=== PATIENT | male | born 1950 | race Caucasian/White ===

== ENCOUNTER 2019-07-02 08:21 | Outpatient (CLI) | payer MEDICARE, SELFPAY ==
[2013-09-06 16:43] VITALS: BP 122/57
[2019-07-02 09:44] LABS: Anion Gap 8.5 mmol/L (3-11); BUN 14 mg/dL (7-18); CO2 28.5 mmol/L (21.0-32.0); CREATININE 0.85 mg/dL (0.70-1.30); Calcium 9.1 mg/dL (8.5-10.1); Calculated LDL 97 mg/dL; Chloride 104 mmol/L (98-107); Cholesterol 166 mg/dL (<200); Glucose 98 mg/dL (74-106); HDL Cholesterol 50 mg/dL (40-60); Potassium 4.5 mmol/L (3.5-5.1); Sodium 141 mmol/L (136-145); Triglyceride 96 mg/dL (<150)
== END 2019-07-02 08:41 ==
PROVIDERS: PCP Emergency Medicine; Visit Provider Nurse Practitioner
DX: E78.2 Mixed hyperlipidemia (principal); I10 Essential (primary) hypertension
CPT/HCPCS: 36415; 80048; 80061

== ENCOUNTER 2019-07-09 00:30 | Outpatient (CLI) | payer MEDICARE, SELFPAY ==
[2013-09-06 16:43] VITALS: BP 122/57
--- NOTE | 2019-07-09 08:08 | ETT_ITS ---
APPROVED REPORT Exam: Exercise Treadmill Patient Location: Out-Patient Room/Bed: Stress Nurse: Kimberli Mccoy RN BMI: 33.14 Indications: Testing today for clearance for IV sedation with dental surgery. Medical History Medical History: CAD s/p IL, CAD s/p stent Cardiac Medications: Lisinopril, Aspirin, Nitroglycerine, Atorvastatin, Metoprolol Tartrate., Allergies: No known drug allergies Cardiac Risk Factors: FHX of CAD, Hyperlipidemia, HTN. Previous Cardiac Procedures: Stent placement Pretest Chest Pain Characteristics: No chest pain Exercise History: Physically active Lung Sounds: Clear to auscultation Heart Sounds: Regular Stress Test Details Test: Exercise stress testing was performed using a Carlos protocol. Rest Stress HR Max Heart Rate (APMHR): 150 bpm Resting HR Supine: 74 bpm Target HR (85% APMHR): 127 bpm Resting HR Standin bpm Max HR Achieved: 136 bpm % of APMHR: 90 HR response to stress: Normal HR response to stress BP Resting BP Supine: 160/94 mmHg Resting BP Standin/92 mmHg Max BP: 186/92 mmHg BP response to stress: Normal blood pressure response to stress. ECG Resting ECG: Sinus Rhythm with occasional PVC's. ST Change: Normal Stress ECG: Occasional PVC's continue throughout exercise test. ST Change: Horizontal ST depression Lead(s): II, III, AvF Maximum ST Deviation: 1 mm Arrhythmia: None Recovery ECG: Occasional PVC's continue throughout recovery. Recovery ST Change: Normal Clinical Reason for Termination: Leg fatigue. Stress Symptoms: None Exercise duration: 9 min1 sec Highest Stage Achieved: Stage 4: 4.2 mph at 16% grade. Exercise capacity: 10.16 METs Functional Capacity: Above average capacity Stress ECG Conclusion 1. The patient exercised for 9 minutes (10 METS) which is above average capacity. 2. He developed [address] depressions in the inferior leads during stress though he had no symptoms. 3. The Pinon Score (3) estimates an annual cardiovascular mortality of 1% and a five year survival of 94%. Using the Pinon Score there is an intermediate probability of angiographic coronary disease. Protocol Used: Carlos Protocol Stress Test Summary STAGE Time (mins) Speed (mph) Grade (%) HR BP SYMPTOMS METS Supine 74 160/94 Standing 93 168/92 1 3 1.7 10 128 168/94 4.6 2 6 2.5 12 133 182/90 7 3 9 3.4 14 136 186/92 10.2 4 12 4.2 16 12.9 5 15 5.0 18 17.2 1 min recovery 122 180/90 3 min recovery 95 170/94 6 min recovery 88 164/92 9 min recovery 85 164/80 12 min recovery 88 162/80
== END 2019-07-09 00:50 ==
PROVIDERS: PCP Emergency Medicine; Visit Provider Nurse Practitioner
DX: I25.10 Atherosclerotic heart disease of native coronary artery without angina pectoris (principal); I25.2 Old myocardial infarction; Z95.5 Presence of coronary angioplasty implant and graft; I10 Essential (primary) hypertension; E78.5 Hyperlipidemia, unspecified; Z82.49 Family history of ischemic heart disease and other diseases of the circulatory system; Z01.818 Encounter for other preprocedural examination
CPT/HCPCS: 93016; 93018; 93017

== ENCOUNTER 2022-01-19 02:09 | Outpatient (CLI) | payer MEDICARE, SELFPAY ==
[2013-09-06 16:43] VITALS: BP 122/57
[2022-01-19 07:27] LABS: ALT 26 U/L (16-63); AST 22 U/L (15-37); Albumin 4.1 g/dL (3.4-5.0); Alkaline Phosphatase 106 U/L (46-116); Anion Gap 7.2 mmol/L (3-11); BUN 15 mg/dL (7-18); Bilirubin, Total 0.9 mg/dL (0.2-1.0); CO2 28.8 mmol/L (21.0-32.0); CREATININE 0.9 mg/dL (0.70-1.30); Calcium 8.7 mg/dL (8.5-10.1); Calculated LDL 91 mg/dL (<100); Chloride 106 mmol/L (98-107); Cholesterol 172 mg/dL (<200); Glucose 115 mg/dL (74-106); HDL Cholesterol 62 mg/dL (40-60); Sodium 142 mmol/L (136-145); Total Protein 7.1 g/dL (6.4-8.2); Triglyceride 96 mg/dL (<150)
== END 2022-01-19 02:10 | disposition home or self-care (01) ==
LOC: LBO 02:10
PROVIDERS: PCP Nurse Practitioner Family; Visit Provider Family Medicine
DX: E78.5 Hyperlipidemia, unspecified (principal); I10 Essential (primary) hypertension; I25.10 Atherosclerotic heart disease of native coronary artery without angina pectoris
CPT/HCPCS: 36415; 80053; 80061

== ENCOUNTER 2023-04-07 02:58 | Outpatient (CLI) | payer MEDICARE, SELFPAY ==
[2013-09-06 16:43] VITALS: BP 122/57
[2023-04-07 16:49] LABS: CREATININE 0.8 mg/dL (0.70-1.30); Estimated GFR 92.87 (mL/min/1.73m2)
== END 2023-04-07 02:59 | disposition home or self-care (01) ==
LOC: LBO 03:00
PROVIDERS: PCP Nurse Practitioner Family; Visit Provider Nurse Practitioner Family
DX: I10 Essential (primary) hypertension (principal)
CPT/HCPCS: 36415; 82565; 84132

== ENCOUNTER 2024-01-06 21:03 | Emergency (ER) | payer MEDICARE, SELFPAY ==
[2013-09-06 16:43] VITALS: BP 122/57
[2024-01-06] VITALS (36 sets, daily range): BP systolic 115–140; BP diastolic 58–108; PULSE 54–190; RESP 12–19; O2SAT 93–99
--- NOTE | 2024-01-06 21:00 | RT.EKG_ITS ---
APPROVED REPORT Exam: Resting ECG Reason for Exam: Chest Pain Patient Location: E HR:189 bpm ECG Measurements Heart Rate 189 AXIS TN 102 P -34 QRSd 168 QRS 144 QT 304 T -60 QTc 537 Conclusion Extreme tachycardia with wide complex, no further rhythm analysis attempted monomorphic vtach
--- NOTE | 2024-01-06 21:00 | RT.EKG_ITS ---
APPROVED REPORT Exam: Resting ECG Reason for Exam: Chest Pain Patient Location: E HR:189 bpm ECG Measurements Heart Rate 189 AXIS MI 102 P -34 QRSd 168 QRS 144 QT 304 T -60 QTc 537 Conclusion monomorphic wide complex tachycardia
[2024-01-06] MEDS: fentaNYL 100 MCG/2 ML VIAL 75 MCG IVP (21:13)
[2024-01-06] MEDS: Midazolam 2 MG/2 ML VIAL 5 MG IVP (21:15)
--- NOTE | 2024-01-06 21:15 | RT.EKG_ITS ---
APPROVED REPORT Exam: Resting ECG Reason for Exam: chest pain Patient Location: E HR:71 bpm ECG Measurements Heart Rate 71 AXIS PA 209 P 51 QRSd 102 QRS 33 QT 345 T 186 QTc 374 Conclusion Sinus rhythm...normal P axis, V-rate 60- 99 Probable anterolateral infarct, age indeterm...Q >35mS, T neg, V2-V6,I,aVL Abnormal T, consider ischemia, lateral leads...T <-0.20mV, I aVL V5 V6 Physician: minimal t wave depressions in V5-6, no ST elevation or STEMI
--- NOTE | 2024-01-06 21:15 | RT.EKG_ITS ---
APPROVED REPORT Exam: Resting ECG Reason for Exam: CHEST PAIN Patient Location: E HR:73 bpm ECG Measurements Heart Rate 73 AXIS [place] 195 P 62 QRSd 104 QRS 44 QT 377 T 94 QTc 416 Conclusion Sinus rhythm...normal P axis, V-rate 60- 99 Anterior infarct, old...Q >40mS, abnormal ST-T, V2-V5 Borderline ST depression, lateral leads...ST <-0.07mV, I aVL V5 V6 no ST segment or T wave abnormalities to suggest occlusive MS
--- NOTE | 2024-01-06 21:15 | RT.EKG_ITS ---
APPROVED REPORT Exam: Resting ECG Reason for Exam: chest pain Patient Location: E HR:67 bpm ECG Measurements Heart Rate 67 AXIS VA 200 P 44 QRSd 95 QRS 16 QT 367 T 174 QTc 387 Conclusion Sinus rhythm...normal P axis, V-rate 60- 99 Abnormal T, consider ischemia, lateral leads...T <-0.20mV, I aVL V5 V6 [address]KG [address] segment or T wave abnormalitites to suggest occluisve CO
--- NOTE | 2024-01-06 21:23 | ED.GENADUL_ITS ---
Discharge Plan Disposition Patient Disposition: Transfer-Acute Inpatient Care Specific Acute Inpt Facility: [facility] Condition: Critical Discharge Details Clinical Impression: Ventricular tachycardia, Acute non-ST elevation myocardial infarction (NSTEMI), Chest pain Primary Care Provider: Von Lopez ED Provider: Vee Guzman Home Meds and New Rx's Prescriptions: No Action mupirocin 2 % ointment 1 applic topical DAILY Qty: 22 2RF Rx Instructions: to affected area atorvastatin 20 mg tablet 20 mg PO DAILY Qty: 90 3RF lisinopril 20 mg tablet See Rx Instructions .ROUTE .COMPLEX Qty: 90 3RF Dose Instruction: TAKE 1 TABLET BY MOUTH DAILY Rx Instructions: TAKE 1 TABLET BY MOUTH DAILY metoprolol succinate 25 mg tablet extended release 24 hr 25 mg PO DAILY Qty: 90 3RF aspirin 325 MG tablet 325 mg PO DAILY HPI General Mode of arrival: ambulatory . Date/Time Provider Initiated Documentation: 01/06/24 21:05 . Limitations to Documentation: no limitations . Information obtained by: patient and family . HPI Narrative: 73yo M with hx CAD prior ID with stent ~25 years ago, presenting with chest pain. Pain started around 7pm; was very active today, putting up wood. Pain was constant since 7pm, somewhat worsening, and he was diaphoretic. eventually convinced him to come to the ED. Pain is dull, substernal, and non-radiating. No shortness of breath at any point. He was in his usual state of health earlier today with no fevers, chills, rash, nausea, vomiting, abdominal pain, numbness, tingling, weakness, or other concerns. Related Data Home Medications Medication Instructions Recorded Confirmed aspirin 325 mg tablet 325 mg PO DAILY 09/06/13 01/06/24 mupirocin 2 % topical ointment 1 applic topical DAILY #22 grams 12/29/21 01/06/24 atorvastatin 20 mg tablet 20 mg PO DAILY #90 tabs 02/10/23 01/06/24 lisinopril 20 mg tablet See Rx Instructions .Route 02/10/23 01/06/24 .COMPLEX #90 tabs metoprolol succinate 25 mg 25 mg PO DAILY #90 tabs 02/10/23 01/06/24 tablet,extended release 24 hr Previous Rx's Medication Instructions Recorded mupirocin 2 % topical ointment 1 applic topical DAILY #22 grams 12/29/21 atorvastatin 20 mg tablet 20 mg PO DAILY #90 tabs 02/10/23 lisinopril 20 mg tablet See Rx Instructions .Route 02/10/23 .COMPLEX #90 tabs metoprolol succinate 25 mg 25 mg PO DAILY #90 tabs 02/10/23 tablet,extended release 24 hr Allergies Allergy/AdvReac Type Severity Reaction Status Date / Time No Known Allergies Allergy Unverified 01/06/24 21:35 General Stated Complaint: Chest Pain KEITH: 2 Review of Systems Narrative: see HPI Exam Narrative Exam Narrative: General: Alert, mild distress, diaphoretic. Head: Normocephalic, atraumatic Neck: Trachea midline, ?Neck supple. ENT: ?MMM.? Cardiac: Tachycardiac Resp: No respiratory distress. CTAB. Abd: ?Soft, non-distended, nontender : ?No suprapubic tenderness. Extremities: ?No deformities.? No peripheral edema. Neurologic: GCS 15. ? Moves all extremities freely against gravity Course Vital Signs Vital signs: Vital Signs Pulse 190 H 01/06/24 21:07 Respiratory Rate 16 01/06/24 21:07 Blood Pressure 133/108 H 01/06/24 21:07 Pulse Oximetry 93 01/06/24 21:07 Pulse 190 H 01/06/24 21:07 Respiratory Rate 16 01/06/24 21:07 Respiratory Effort Normal 01/06/24 21:15 Blood Pressure 133/108 H 01/06/24 21:07 Pulse Oximetry 93 01/06/24 21:07 Oxygen Delivery Method Room Air 01/06/24 21:07 Oxygen Flow Rate 0 01/06/24 21:07 Pain Level 5 01/06/24 21:07 Medical Decision Making 73yo M with hx CAD prior ID with stent ~25 years ago, presenting with chest pain since 7pm, worsening, now with diaphoresis. No shortness of breath. Takes 325 of ASA daily; took additional 325 after onset of chest pain. Tachycardiac to 190 on the monitor; adequate pressure. EKG wide complex tachycardia. With ongoing chest pain, will treat as unstable despite adequate BP. IV access established, patient pre-medicated with 75mcg of fentanyl and 5mg versed. Synchronized cardioversion with 120J; converted into NSR. EKG with some ST depressions V3-V6; posterior EKG with no STEMI. Sonorous respirations after ( reports snoring ?sleep apnea at baseline); placed on 6L NC to maintain O2 sat >95%. Patient subsequently returned to wide complex tachycardia; again synchronized cardioversion this time at 200J, again converted to NSR. Remained in SR on the monitor, MAP borderline 60-65; given 2L IVFB with good effect. Labs reviewed as below, CBC with no leukocytsois or anemia, CMP with no significant electrolyte abnormalities, VBG with PH 7.32 with normal bicarb and pCO2, lactate 1.7, trop elevated at 417, BNP normal. 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 Advised amio bolus followed by gtt, starting heparin; accepted to [facility] under Dr. Mccoy; transported via [facility] air. Lab Data Lab results reviewed: Yes I reviewed the patient's lab results. Labs: Laboratory Tests Range/Units 01/06/24 21:11 WBC (4.4-10.8) 10^3/uL 9.82 RBC (4.36-5.78) 10^6/uL 5.32 Hgb (13.5-17.5) g/dL 16.1 Hct (40.0-50.0) % 47.8 MCV (80-95) fL 90 MCH (27.0-33.0) pg 30.3 MCHC (32.0-36.0) % 33.7 RDW (11.8-14.1) % 13.2 Plt Count (130-400) 10^3/uL 234 MPV (8.0-11.0) fL 9.5 Immature Gran % % 0.5 Neutrophils % % 69.7 Lymphocytes % % 21.4 Monocytes % % 6.9 Eosinophils % % 1.0 Basophils % % 0.5 Nucleated RBC % (0.0-0.3) % 0.0 Absolute Neutrophils (1.2-6.7) 10^3/uL 6.84 H Absolute Lymphocytes (1.2-3.4) 10^3/uL 2.10 Absolute Monocytes (0.1-0.8) 10^3/uL 0.68 Absolute Eosinophils (0.0-0.7) 10^3/uL 0.10 Absolute Basophils (0.0-0.2) 10^3/uL 0.05 VBG pH (7.31-7.41) 7.32 VBG pCO2 (41-51) mmHg 51 VBG pO2 mmHg 32 VBG HCO3 (23-28) mmol/L 26 VBG Total CO2 (24-29) mmol/L 23 L VBG O2 Saturation % 56 VBG Base Excess (-2-3) mmol/L 0 VBG Lactate (0.6-1.4) mmol/L 1.7 H Sodium (136-145) mmol/L 139 Potassium (3.5-5.1) mmol/L 3.8 Chloride (98-107) mmol/L 103 Carbon Dioxide (21.0-32.0) mmol/L 26.6 Anion Gap (3-11) mmol/L 9.4 BUN (7-18) mg/dL 16 Creatinine (0.70-1.30) mg/dL 1.1 Est GFR (CKD-EPI 2020) (mL/min/1.73m2) 70.01 Glucose (74-106) mg/dL 170 H Calcium (8.5-10.1) mg/dL 9.2 Magnesium (1.8-2.4) mg/dL 1.9 Total Bilirubin (0.2-1.0) mg/dL 0.5 AST (15-37) U/L 26 ALT (16-63) U/L 34 Alkaline Phosphatase (46-116) U/L 116 Troponin I (< or =60) ng/L 417 H* NT-Pro-B Natriuret Pep (<300) pg/mL 88 Total Protein (6.4-8.2) g/dL 7.6 Albumin (3.4-5.0) g/dL 4.2 Quality:SDOH Health Related Social Needs: No Data to Display Critical Care Time Critical Care Time Critical Care Time: Yes Total Critical Care Time: 32 Attestation: Due to a high probability of clinically significant, life threatening deterioration, the patient required my highest level of preparedness to intervene emergently and I personally spent this critical care time directly and personally managing the patient. This critical care time included obtaining a history; examining the patient; pulse oximetry; ordering and review of studies; arranging urgent treatment with development of a management plan; evaluation of patient's response to treatment; frequent reassessment; and, discussions with other providers. This critical care time was performed to assess and manage the high probability of imminent, life-threatening deterioration that could result in multi-organ failure. It was exclusive of separately billable procedures and treating other patients. [facility] All Active Problems (Updated 01/06/24 @ 23:02 by Vee Guzman MD) Chest pain (Acute) Acute non-ST elevation myocardial infarction (NSTEMI) (Acute) Ventricular tachycardia (Chronic) Hyperglycemia (Acute) 01/2022,[id number] Rosacea (Acute) Hyperlipidemia (Acute) Essential hypertension (Acute) Coronary atherosclerosis of [place] coronary vessel (Acute) 1997-[place].I.; V.F.; arrest; LAD occlusion by cath; angioplasty CHF Medical History Polyp of colon T.A. Surgical History Colonoscopy - MAC (~2007) Tubular adenoma Extraction of cataract 04/17 05/17 Rotator Cuff Repair (10/22/14) [facility]; DR. PANTOJA;RIGHT SHOULDER Family History Mother Essential hypertension Personal history of malignant neoplasm colon Heart disease Hyperlipidemia Father No problems noted. Brother No problems noted. Sister No problems noted. Grandfather Heart disease Grandfather Heart disease Grandmother No problems noted. Grandmother Personal history of malignant neoplasm Social History (Updated 02/09/23 @ 15:36 by Delmy Rubio) Smoking/Tobacco Use Status: Former Tobacco Use tobacco type: cigarettes Quit Date: 08/07/71 Tobacco: How many years used: 3 Second Hand Exposure: Yes Smoking risk assessment performed?: Yes Alcohol Intake: current Alcohol Intake frequency: a few times a week Alcohol type: beer Drug use: Never Substance use type: does not use Caregiver/Support person: No Household members: spouse Housing: house Communication Needs: None Do you need help understanding health information?: Never Pets and animals: Yes Pets and animals: cat(s) Sexually active: Yes Do you think of yourself as: straight/heterosexual Current gender identity: male What is your relationship status?: How often do you talk on the phone with friends or family?: three or more times per week How often do you get together with friends or relatives?: three or more times per week How often do you attend gnosticist or confucianist services?: 1-3 times per year Do you belong to any clubs or organized social groups?: no Panel score (0-1 are the most socially isolated patients): 2 Duration: > 90 minutes/day Frequency: daily Tina/Quaker: Rastafari Special tina needs: No Seatbelt use: always Helmet use: Yes Helmet use: always Drive intox or ride w/intox lunch truck driver: No
--- NOTE | 2024-01-06 21:30 | DI.RAD_ITS ---
Exam(s) XR PORTABLE CHEST AP EXAM: XR PORTABLE CHEST AP CLINICAL HISTORY: chest pain TECHNIQUE: 2D digital imaging was performed of the chest. One image was obtained. An AP view was ob tained. COMPARISON: No exams were available for comparison FINDINGS: Poor patient inspiration. MEDIASTINUM: Normal. HEART: Mild cardiomegaly. PULMONARY VASCULATURE: Pulmonary venous congestion. LUNGS: Bilateral pulmonary densities. PLEURAL SPACE: Question of a left pleural effusion. No pneumothorax. BONE:Within normal limits for the patient's age. OTHER FINDINGS:Normal. IMPRESSION: Pulmonary venous congestion and bilateral pulmonary densities suspicious for congestive heart failure . Small left pleural effusion. DATA REPOSITORY: RADIATION DOSE DELIVERED:
[2024-01-06 21:43] LABS: BE (Venous) 0 mmol/L (-2-3); HCO3 (Venous) 26 mmol/L (23-28); O2 Sat (Venous) 56 %; TCO2 (Venous) 23 mmol/L (24-29); pCO2 (Venous) 51 mmHg (41-51); pH (Venous) 7.32 (7.31-7.41); pO2 (Venous) 32 mmHg
[2024-01-06 21:44] LABS: Abs Immature Grans 0.05 10^3/uL (0.0-0.06); Absolute Basophil Count 0.05 10^3/uL (0.0-0.2); Absolute Monocyte Count 0.68 10^3/uL (0.1-0.8); Absolute Neutrophil Count 6.84 10^3/uL (1.2-6.7); Basophils % 0.5 %; HCT 47.8 % (40.0-50.0); HGB 16.1 g/dL (13.5-17.5); Immature Grans % 0.5 %; Lactate 1.7 mmol/L (0.6-1.4); Lymphocytes % 21.4 %; MCH 30.3 pg (27.0-33.0); MCHC 33.7 % (32.0-36.0); MCV 90 fL (80-95); MPV 9.5 fL (8.0-11.0); Monocytes % 6.9 %; Neutrophils % 69.7 %; Platelet Count 234 10^3/uL (130-400); RBC 5.32 10^6/uL (4.36-5.78); RDW 13.2 % (11.8-14.1); RDW-SD 43.5 fL; WBC 9.82 10^3/uL (4.4-10.8)
[2024-01-06 22:07] LABS: ALT 34 U/L (16-63); AST 26 U/L (15-37); Albumin 4.2 g/dL (3.4-5.0); Alkaline Phosphatase 116 U/L (46-116); Anion Gap 9.4 mmol/L (3-11); BUN 16 mg/dL (7-18); Bilirubin, Total 0.5 mg/dL (0.2-1.0); CO2 26.6 mmol/L (21.0-32.0); CREATININE 1.1 mg/dL (0.70-1.30); Calcium 9.2 mg/dL (8.5-10.1); Chloride 103 mmol/L (98-107); Estimated GFR 70.01 (mL/min/1.73m2); Glucose 170 mg/dL (74-106); Magnesium 1.9 mg/dL (1.8-2.4); NT-proBNP 88 pg/mL (<300); Potassium 3.8 mmol/L (3.5-5.1); Sodium 139 mmol/L (136-145); Total Protein 7.6 g/dL (6.4-8.2)
[2024-01-06 22:10] LABS: Troponin I 417 ng/L (< or =60)
--- NOTE | 2024-01-06 22:16 | NUR.NOTE ---
Pt walked into the waiting room with (Beverly) with CC CP 5/ that started during a walk with the dog at 19:00. Pt has hx of HTN, past AR (26 years ago with 1 stent), High Cholesterol. Pt takes DAILY 325 mg ASA. Took this in the AM, then took another 325 mg dose prior to coming to the ED. Has received a total of 650 mg ASA today. Pt weight 220 lb. Height 5'7. Pt brought straight back to Room 1, and when placed on the monitor was found to be in a tachycardia at 200 with CP. MD alerted immediately, vitals, IV access, and pads placed immediately. 21:11 IV access.12 lead EKG, then Posterior 12 lead EKG 21:13 75 mcg Fentanyl 21:15 5 mg Versed IV - pt conscious, alert and oriented. 21:16 Synchronized cardioversion at 120 Joules. Successful - NSR in the 60s 21:18 O2 provided at 8 lpm with Capnography on as well. 21:30 Went into tachycardia at 190 bpm 21:30 Synchronized cardioversion at 200 J. Successful. Back to NSR in 60s. Repeat EKG 21:32 - NS bolus begun, pt hypotesive maps mid 60's, started another line of NS. MAPs came back normal. 22:39 - Pt titrated down to 2 lpm by RT. Maintaing SpO2 at 98%. 22:41 - Pt CP free, feels like normal self. No complaints at this time. Pt still in NSR with occasional PVCs. Alvaro Glynn, CECYN, RN, NRP
[2024-01-06] MEDS: Heparin 5,000 UNITS/ML VIAL 5000 UNITS IV (23:00)
--- NOTE | 2024-01-06 23:09 | DI.VRAD_ITS ---
PROCEDURE INFORMATION: Exam: XR Chest Exam date and time: 01/06/2024 9:50 PM Age: 73 years old Clinical indication: Other: Unspecified; Patient HX: Chest pain TECHNIQUE: Imaging protocol: Radiologic exam of the chest. Views: 1 view. COMPARISON: No relevant prior studies available. FINDINGS: Lungs: Increased interstitial lung markings bilaterally most likely representing interstitial edema or congestive heart failure. No regional or lobar consolidation. Pleural spaces: Blunted costophrenic angle suggesting small pleural effusions. Heart/Mediastinum: Normal heart size. Bones/joints: No acute skeletal change. IMPRESSION: 1. Interstitial edema/CHF features. 2. Minor bilateral pleural effusions. 3. No lobar or segmental infiltrative features. Dictated and Authenticated by: Andres Marques MD. Ordering:MADIHA Baxter MD
[2024-01-06 23:12] LABS: PTT Activated 28.3 sec (23.6-32.8); Prothrombin Time 10.4 sec (9.1-11.1)
[2024-01-06] MEDS: Heparin in 0.45% NaCl 25,000 UNIT/250 ML BAG 1000 UNIT IV (23:18)
[2024-01-06] MEDS: Amiodarone 150 MG/3 ML VIAL IVP (23:19)
[2024-01-06] MEDS: Amiodarone in Dextrose 360 MG/200 ML BAG 33.3 MG IV (23:20)
[2024-01-07 00:01] VITALS: PULSE 65; RESP 23; O2SAT 95
[2024-01-07 00:02] VITALS: BP 141/85; PULSE 64; PULSE 65; RESP 18; O2SAT 95
--- NOTE | 2024-01-07 08:56 | NUR.NOTE ---
Accessed pt chart to reconcile EKG orders with EKG?s in [facility]. Nursing Note:
--- NOTE | 2024-01-07 14:23 | NUR.NOTE ---
Accessed chart to determine the Amiodarone drip for [facility]. I found it in the nursing ED Visit Summary. Nursing Note:
== END 2024-01-07 00:26 | disposition short-term general hospital (02) ==
PROVIDERS: Emergency Provider Student in an Organized Health Care Education/Training Program; PCP Nurse Practitioner Family
DX: I47.20 Ventricular tachycardia, unspecified (principal); I21.4 Non-ST elevation (NSTEMI) myocardial infarction; R79.89 Other specified abnormal findings of blood chemistry; I10 Essential (primary) hypertension; I25.10 Atherosclerotic heart disease of native coronary artery without angina pectoris; I25.2 Old myocardial infarction; Z79.82 Long term (current) use of aspirin; Z95.5 Presence of coronary angioplasty implant and graft; Z87.891 Personal history of nicotine dependence
CPT/HCPCS: 36415; 80053; 82805; 92960; 93005; 99291; 71045; 83605; 83735; 83880; 84484; 85025; 85610; 85730; 93010; J0282; J0283; J1644; J2250; J3010

== ENCOUNTER 2024-02-20 03:24 | Outpatient (CLI) | payer MEDICARE, SELFPAY ==
[2013-09-06 16:43] VITALS: BP 122/57
[2024-02-20 09:31] LABS: Hemoglobin A1C 5.9 % (<5.7)
[2024-02-20 10:17] LABS: CREATININE 0.8 mg/dL (0.70-1.30); Calculated LDL 55 mg/dL (<100); Cholesterol 118 mg/dL (<200); Estimated GFR 92.29 (mL/min/1.73m2); HDL Cholesterol 50 mg/dL (40-60); Potassium 4.4 mmol/L (3.5-5.1); Triglyceride 66 mg/dL (<150)
[2024-02-20 19:38] LABS: PSA, Screening 1.1 ng/mL (<=6.5)
== END 2024-02-20 03:25 | disposition home or self-care (01) ==
LOC: LBO 03:24
PROVIDERS: PCP Nurse Practitioner Family; Referring Provider Nurse Practitioner Family; Visit Provider Nurse Practitioner Family
DX: E78.5 Hyperlipidemia, unspecified (principal); I10 Essential (primary) hypertension; R73.9 Hyperglycemia, unspecified; Z12.5 Encounter for screening for malignant neoplasm of prostate
CPT/HCPCS: 36415; 80061; 84153; 82565; 83036; 84132

== ENCOUNTER 2024-03-06 08:32 | Outpatient (RCR) | payer MEDICARE, SELFPAY ==
[2013-09-06 16:43] VITALS: BP 122/57
== END 2024-03-06 23:59 | disposition home or self-care (01) ==
LOC: CR 08:32
PROVIDERS: PCP Nurse Practitioner Family; Visit Provider Internal Medicine Cardiovascular Disease
DX: I21.4 Non-ST elevation (NSTEMI) myocardial infarction (principal)
CPT/HCPCS: S9472

== ENCOUNTER 2024-04-05 08:19 | Outpatient (RCR) | payer MEDICARE, SELFPAY ==
[2013-09-06 16:43] VITALS: BP 122/57
== END 2024-04-06 23:59 | disposition home or self-care (01) ==
LOC: CR 08:19
PROVIDERS: PCP Nurse Practitioner Family; Visit Provider Internal Medicine Cardiovascular Disease
DX: I21.4 Non-ST elevation (NSTEMI) myocardial infarction (principal); Z51.89 Encounter for other specified aftercare
CPT/HCPCS: S9472

== ENCOUNTER 2024-05-06 08:05 | Outpatient (RCR) | payer MEDICARE, SELFPAY ==
[2013-09-06 16:43] VITALS: BP 122/57
== END 2024-05-06 23:59 | disposition home or self-care (01) ==
LOC: CR 08:05
PROVIDERS: PCP Nurse Practitioner Family; Visit Provider Internal Medicine Cardiovascular Disease
DX: I21.4 Non-ST elevation (NSTEMI) myocardial infarction (principal); Z95.5 Presence of coronary angioplasty implant and graft; Z51.89 Encounter for other specified aftercare
CPT/HCPCS: S9472

== ENCOUNTER 2024-05-24 08:11 | Outpatient (RCR) | payer MEDICARE, SELFPAY ==
[2013-09-06 16:43] VITALS: BP 122/57
== END 2024-06-06 23:59 | disposition home or self-care (01) ==
LOC: CR 08:11
PROVIDERS: PCP Nurse Practitioner Family; Visit Provider Internal Medicine Cardiovascular Disease
DX: I21.4 Non-ST elevation (NSTEMI) myocardial infarction (principal); Z51.89 Encounter for other specified aftercare
CPT/HCPCS: S9472

== ENCOUNTER 2024-06-03 08:31 | Outpatient (CLI) | payer MEDICARE, SELFPAY ==
[2013-09-06 16:43] VITALS: BP 122/57
--- NOTE | 2024-06-03 08:30 | RT.EKG_ITS ---
APPROVED REPORT Exam: Resting ECG Reason for Exam: ASCVD Patient Location: O HR:47 bpm ECG Measurements Heart Rate 47 AXIS [place] 208 P 36 QRSd 108 QRS 2 QT 483 T 30 QTc 427 Conclusion Sinus bradycardia...rate< 50 Anterior infarct, old...Q >40mS, abnormal ST-T, V2-V5
== END 2024-06-03 08:32 | disposition home or self-care (01) ==
LOC: DI.CARD 08:32
PROVIDERS: PCP Nurse Practitioner Family; Visit Provider Internal Medicine Cardiovascular Disease
DX: I25.10 Atherosclerotic heart disease of native coronary artery without angina pectoris
CPT/HCPCS: 93010

== ENCOUNTER → 2024-06-03 10:59 | Outpatient (BNVA) | payer MEDICARE, SELFPAY ==
[2013-09-06 16:43] VITALS: BP 122/57
== END ==
PROVIDERS: PCP Nurse Practitioner Family; Referring Provider Nurse Practitioner Family; Visit Provider Internal Medicine Cardiovascular Disease
DX: I47.20 Ventricular tachycardia, unspecified (principal); R00.1 Bradycardia, unspecified; I25.10 Atherosclerotic heart disease of native coronary artery without angina pectoris
CPT/HCPCS: 93005; 99214

== ENCOUNTER 2024-07-25 10:30 | Outpatient (REF) | payer MEDICARE, SELFPAY ==
[2013-09-06 16:43] VITALS: BP 122/57
[2024-07-25 15:08] LABS: Abs Immature Grans 0.01 10^3/uL (0.0-0.06); Absolute Basophil Count 0.03 10^3/uL (0.0-0.2); Absolute Eosinophil Count 0.04 10^3/uL (0.0-0.7); Absolute Lymphocyte Count 1.37 10^3/uL (1.2-3.4); Absolute Monocyte Count 0.36 10^3/uL (0.1-0.8); Absolute Neutrophil Count 2.47 10^3/uL (1.2-6.7); Basophils % 0.7 %; Eosinophils % 0.9 %; HCT 44.9 % (40.0-50.0); HGB 15.3 g/dL (13.5-17.5); Immature Grans % 0.2 %; MCH 29.7 pg (27.0-33.0); MCHC 34.1 % (32.0-36.0); MCV 87 fL (80-95); MPV 10.1 fL (8.0-11.0); Monocytes % 8.4 %; Neutrophils % 57.8 %; Platelet Count 166 10^3/uL (130-400); RBC 5.15 10^6/uL (4.36-5.78); RDW 13.1 % (11.8-14.1); RDW-SD 41.8 fL; WBC 4.28 10^3/uL (4.4-10.8)
[2024-07-25 15:27] LABS: Hemoglobin A1C 5.7 % (<5.7)
[2024-07-25 15:31] LABS: ALT 30 U/L (16-63); AST 23 U/L (15-37); Albumin 4.2 g/dL (3.4-5.0); Alkaline Phosphatase 108 U/L (46-116); Anion Gap 6.6 mmol/L (3-11); BUN 11 mg/dL (7-18); Bilirubin, Total 0.78 mg/dL (0.2-1.0); CO2 30.4 mmol/L (21.0-32.0); CREATININE 0.7 mg/dL (0.70-1.30); Calcium 9.3 mg/dL (8.5-10.1); Calculated LDL 70 mg/dL (<100); Chloride 106 mmol/L (98-107); Cholesterol 142 mg/dL (<200); Estimated GFR 96.09 (mL/min/1.73m2); Glucose 92 mg/dL (74-106); HDL Cholesterol 61 mg/dL (40-60); Potassium 4.6 mmol/L (3.5-5.1); Sodium 143 mmol/L (136-145); TSH 5.14 uIU/mL (0.36-3.74); Total Protein 6.9 g/dL (6.4-8.2); Triglyceride 57 mg/dL (<150)
== END 2024-07-25 10:31 | disposition home or self-care (01) ==
LOC: NCHCN 10:30
PROVIDERS: PCP Nurse Practitioner Family; Visit Provider Family Medicine
DX: Z79.899 Other long term (current) drug therapy (principal); I25.10 Atherosclerotic heart disease of native coronary artery without angina pectoris
CPT/HCPCS: 80053; 80061; 83036; 84443; 85025

== ENCOUNTER 2024-10-30 01:07 | Outpatient (CLI) | payer MEDICARE, SELFPAY ==
[2013-09-06 16:43] VITALS: BP 122/57
--- NOTE | 2024-10-30 06:15 | DI.US_ITS ---
APPROVED REPORT EXAM: Comprehensive 2D, Doppler, and color-flow Echocardiogram Patient Location: Out-Patient Systems Integration Advisor: Edwin Sauceda RDCS (AE) Indications: Recheck LV function, atherosclerotic heart disease Other Information Study Quality: Adequate Conclusion Normal left ventricular wall thickness and chamber size. Ejection fraction is 45%. There are wall m otion abnormalities involving the apex and anteroapical segments Normal right ventricular size and function Both atria are normal in size Aortic valve is mildly sclerotic There is no additional hemodynamically significant valvular disease Ascending aorta measures 3.91 cm LV function and wall motion appear similar to that described from [facility] last year Wall motion Left Ventricle The left ventricle is normal size. Left ventricular systolic function is mildly decreased. There is n ormal left ventricular wall thickness. Regional wall motion abnormalities are noted. There is no vent ricular septal defect visualized. LVEF is 45%. Right Ventricle The right ventricle is normal size. The right ventricular systolic function is normal. Atria The left atrium size is normal. The right atrium size is normal. The interatrial septum is intact wit h no evidence for an atrial septal defect. Aortic Valve The aortic valve is mildly sclerotic. Aortic valve is trileaflet. There is no aortic valvular stenosi s. Trace aortic regurgitation. Mitral Valve The mitral valve is normal in structure. No evidence of mitral valve stenosis. Trace mitral regurgita tion. Tricuspid Valve The tricuspid valve is normal in structure. There is no tricuspid valve stenosis. There is no tricusp id valve regurgitation noted. Pulmonic Valve The pulmonary valve is normal in structure. There is no pulmonic valvular stenosis. Mild pulmonic reg urgitation. Great Vessels The aortic root is normal in size. The ascending aorta is mildly dilated. Aortic arch is normal in ca liber. IVC is normal in size and collapses >50% with inspiration. Pericardium There is no pericardial effusion. 2D Dimensions IVSD d PLAX 0.81 cm M: 0.6-1.2 Ao Root d 3.55 cm M: 3.1 - 3.7 LVPW d PLAX 0.85 cm M: 0.6 - 1.2 Ao Asc Diam d 3.91 cm M: 2.6 - 3.4 LVID d PLAX 5.73 cm M: 4.2 - 5.8 LVDs 4.26 cm M: 2.5 - 4.0 LV EF Teichholz 49.9 % FS 25.73 % LV EDV (Teich) 162.7 mL LV ESV (Teich) 82.3 mL Stroke Vol Index (Teich) 40.20 M-Mode TAPSE 1.96 cm (M/F) >1.7 Auto EF LV EDV A4C 189.8 mL LV EDV A2C 124.6 mL LV EDV BP 159.1 mL LV ESV A4C 103.3 mL LV ESV A2C 66.8 mL LV ESV BP 85.5 mL LVEF(%) A4C 45.5 % LVEF(%) A2C 46.8 % LVEF(%) BP 46.4 % LV SV A4C 86.5 ml LV SV A2C 57.7 ml LV SV BP 73.6 ml LV CO A4C 4.8 L/min LV CO A2C 2.8 L/min LV CO BP 3.8 L/min HR A4C 54.97 BPM HR A2C 49.11 BPM LV EDV Index (BP) LA Volume LA Length A4C 4.8 cm LA Length A2C 4.9 cm LA Area A4C s 16.48 cm2 LA Area A2C s 15.02 cm2 LA Vol A4C A-L 48.10 mL LA Vol A2C A-L 38.73 mL LA Vol Biplane A-L 43.8 mL LA Vol/BSA A4C A-L LA Vol/BSA A2C A-L LA Vol/BSA BP A-L 21.9 mL/m2 LA Vol A4C MOD 45.4 mL LA Vol A2C MOD 34.9 mL LA Vol BP MOD 40.3 mL RA Volume RA Area A4C 8.6 cm2 RA ESV A4C (A-L) 18.6mL RA Vol/BSA A4C A-L RA Length A4C 3.4 cm RA ESV A4C (MOD) 16.8mL LV Diastology MV E' medial 0.039 (>0.07 m/s) MV E Vmax 0.72 (0.4-1.3 m/s) MV E/E' MED 18.48 (<14) MV A Vmax 0.75 (0.4-1.3 m/s) MV E' lateral 0.079 (>0.1 m/s) E/A Ratio 1.0 MV E/E' LAT 9.11 (<14) MV E' Average 0.059 m/s MV E/E'(average) 12.21 Aortic Valve AoV Vmax 1.25 m/s LVOT Vmax 0.93 m/s AoV Peak Grad 6.2 mmHg LVOT Peak Grad 3.5 mmHg AoV Area (Vmax) 2.45 cm2 LVOT VTI 0.236 m AoV VTI 0.356 m LVOT Mean Grad 1.5 mmHg AoV Mean Bruno. 0.92 m/s LVOT SV 77.72 mL AoV Mean Grad 3.7 mmHg LVOT Diam s 2.00 cm AoV Area (VTI) 2.19 cm2 AV Regurg Peak Gr. 6.22 mmHg Velocity Ratio 0.74 Mitral Valve MV DT 126 (160-240 msec) Pulmonary Valve PV Vmax 0.87 (0.5-1.5 m/s) RVOT Vmax 0.54 m/s PV Peak Grad 3.0 mmHg RVOT Peak Gr. 1.2 mmHg PV Mean Bruno 0.67 m/s RVOT VTI 0.141 m PV Mean Grad 2.0 mmHg RVOT Mean Gr. 0.7 mmHg Tricuspid Valve TV S' 0.10 m/s
== END 2024-10-30 01:27 ==
LOC: DI 01:07
PROVIDERS: PCP Family Medicine; Visit Provider Internal Medicine Cardiovascular Disease
DX: I25.10 Atherosclerotic heart disease of native coronary artery without angina pectoris (principal); I35.0 Nonrheumatic aortic (valve) stenosis
CPT/HCPCS: 93306

== ENCOUNTER → 2024-12-02 10:49 | Outpatient (BNVA) | payer MEDICARE, SELFPAY ==
[2013-09-06 16:43] VITALS: BP 122/57
== END ==
PROVIDERS: PCP Family Medicine; Referring Provider Nurse Practitioner Family; Visit Provider Registered Nurse
DX: I25.10 Atherosclerotic heart disease of native coronary artery without angina pectoris (principal); I47.20 Ventricular tachycardia, unspecified; I25.2 Old myocardial infarction
CPT/HCPCS: 99214